=== PATIENT | female | born 1990 | race African-American/Black ===

== ENCOUNTER 2017-10-09 08:27 | Emergency (ER) | payer BC ==
[~2017-10-09] VITALS: Ht 162.6 cm; Wt 46.0 kg
[~2017-10-09 08:27] MED LIST: IRON325 MG PO; NATAZIA 28 TAB1 EACH PO; NOHOMEMEDS; TRI-SPRINTEC1 EACH PO; VITAMIN B12 100MCG PO
[2017-10-09 09:30] LABS: HEMATOCRIT 35.9 % (36.0-46.0); HEMOGLOBIN 11.8 G/DL (11.9-15.5); MCH 29.1 PG (29.0-34.0); MCHC 32.9 G/DL (30.0-36.0); MCV 88.6 FL (83-99); PLATELET COUNT 261 K/uL (156-360); RBC DIS.WIDTH-CV 12.6 % (11.8-14.6); RBC DIS.WIDTH-SD 40.7 % (39-53); RED BLOOD COUNT 4.05 M/uL (3.80-5.20); WHITE BLOOD COUNT 3.4 K/uL (4.1-10.2)
[2017-10-09 09:43] LABS: ALBUMIN 3.9 g/dL (3.2-4.8); CHLORIDE 107 mEq/L (99-109); SODIUM 139 mEq/L (136-147)
[2017-10-09 09:45] LABS: GLUCOSE 95 mg/dL (70-99)
[2017-10-09 09:46] LABS: TOTAL PROTEIN 6.9 g/dL (6.4-8.3)
[2017-10-09 09:47] LABS: TOTAL BILIRUBIN 0.7 mg/dL (0.0-1.0)
[2017-10-09 09:49] LABS: ALKALINE PHOSPHATASE 46 IU/L (3-129); CREATININE 0.8 mg/dL (0.6-1.3); GFR ESTIMATE (CALCULATED) > 59 mL/min/
[2017-10-09 09:50] LABS: UREA NITROGEN (BUN) 14 mg/dL (9-23)
[2017-10-09 09:51] LABS: AST (GOT) 18 IU/L (2-34)
[2017-10-09 09:52] LABS: ALT (GPT) 8 IU/L (3-49)
[2017-10-09 09:53] LABS: LIPASE 34 U/L (1.0-51.0)
[2017-10-09 10:23] LABS: APPEARANCE CLEAR ((CLEAR)); BILIRUBIN NEGATIVE; BLOOD NEGATIVE; COLOR STRAW ((YELLOW)); GLUCOSE (STRIP) NEGATIVE; KETONES NEGATIVE; LEUKOCYTES NEGATIVE; NITRITE NEGATIVE; PROTEIN (STRIP) NEGATIVE; SPECIFIC GRAVITY 1.006 (1.000-1.030); UCUL ADDED? NO; UROBILINOGEN 0.2 MG/DL (0.2-1.0)
[2017-10-09 10:32] LABS: AMPHETAMINE NEGATIVE (500 ng/mL); BARBITURATES NEGATIVE (200 ng/mL); BENZODIAZEPINES NEGATIVE (150 ng/mL); BUPRENORPHINE NEGATIVE (10 ng/mL); COCAINE NEGATIVE (150 ng/mL); METHADONE NEGATIVE (200 ng/mL); METHAMPHETAMINE NEGATIVE (500 ng/mL); OPIATES (MORPHINE) NEGATIVE (100 ng/mL); OXYCODONE NEGATIVE (100 ng/mL); PHENCYCLIDINE NEGATIVE (25 ng/mL); PROPOXYPHENE NEGATIVE (300 ng/mL); THC CANNABINOIDS NEGATIVE (50 ng/mL); TRICYCLIC ANTIDEPRESSANTS NEGATIVE (300 ng/mL)
[2017-10-09 12:57] VITALS: BP 121/74
== END 2017-10-09 12:57 | disposition home or self-care (01) ==
LOC: EME 08:27
PROVIDERS: Emergency Medicine
DX: R41.0 Disorientation, unspecified (principal); R47.81 Slurred speech; T43.225A Adverse effect of selective serotonin reuptake inhibitors, initial encounter; M41.9 Scoliosis, unspecified
CPT/HCPCS: 80053; 81003; 83690; 85027; 99281; 99284; J7030